=== PATIENT | female | born 1980 | race Caucasian/White ===

== ENCOUNTER 2023-05-11 08:56 | Outpatient (CLI) | payer BC | END 2023-05-11 08:57 | disposition home or self-care (01) | LOC: BICMAMMO 08:56 | PROVIDERS: ATTEND Internal Medicine Hematology & Oncology | DX: Z08 Encounter for follow-up examination after completed treatment for malignant neoplasm (principal); Z85.3 Personal history of malignant neoplasm of breast | CPT/HCPCS: 77066; A9577; C8908; G0279 ==

== ENCOUNTER 2024-06-15 08:15 | Outpatient (CLI) | payer BC | END 2024-06-15 08:16 | disposition home or self-care (01) | LOC: BICMAMMO 08:15 | PROVIDERS: ATTEND Surgery | DX: Z08 Encounter for follow-up examination after completed treatment for malignant neoplasm (principal); Z85.3 Personal history of malignant neoplasm of breast | CPT/HCPCS: 77066; 82565; A9577; C8908; G0279 ==